=== PATIENT | male | born 1960 | race Caucasian/White ===

== ENCOUNTER 2020-09-07 21:10 | Emergency (ER) | payer SELFPAY ==
[~2020-09-07] VITALS: Ht 170.2 cm; Wt 99.2 kg
[2020-09-07] MEDS ORDERED: LABETALOL 5MG/ML, 20ML ONE (21:34)
--- NOTE | 2020-09-07 21:40 | NUR ---
Patient presents to ER c/o HTN, slurred speech, SOB, and swelling to bilat lower legs since today aroun 1900. Patient has no hx of TIA or stroke. Per daughter, patient is also generally weak. Patient self admin HTN meds at home. Patient is in NAD. Respirations even and unlabored. Patient speaks Arm[place]; this RN unable to evaluate for slurred speech. No weakness noted.
[2020-09-07] MEDS ORDERED: LABETALOL 5MG/ML, 20ML IVPush ONE (22:00)
[2020-09-07 22:43] LABS: BASOPHILS % (AUTO) 1 % (0-1); EOSINOPHILS % (AUTO) 2 % (1-7); LYMPHOCYTES % (AUTO) 26 % (22-44); MEAN CORPUSCULAR HEMOGLOBIN 28.9 pg (27.5-34.5); MEAN CORPUSCULAR HGB CONC 32.3 g/dL (33.2-36.2); MEAN PLATELET VOLUME 9.4 fL (7.4-10.4); MONOCYTES % (AUTO) 9 % (2-9); NEUTROPHILS % (AUTO) 63 % (42-75); PLATELET COUNT 327 x10^3/uL (130-400); RED BLOOD COUNT 5.05 x10^6/uL (4.38-5.82); RED CELL DISTRIBUTION WIDTH 15.1 % (9.4-14.8)
[2020-09-07 22:45] LABS: MD NO
[2020-09-07 22:51] LABS: ANION GAP 2 mmol/L (5-15); CALCIUM 9.2 mg/dL (8.5-10.1); CHLORIDE 110 mmol/L (98-107)
[2020-09-07 22:52] LABS: ALANINE AMINOTRANSFERASE 24 U/L (12-78); ALBUMIN 3.9 g/dL (3.4-5.0)
[2020-09-07 22:56] LABS: ALKALINE PHOSPHATASE 74 U/L (45-117); BILIRUBIN,TOTAL 0.2 mg/dL (0.2-1.0); TOTAL PROTEIN 7.9 g/dL (6.4-8.2); TROPONIN I < 0.015 ng/mL (0.000-0.045)
[2020-09-07] MEDS ORDERED: OMNIPAQUE 350 MG/ML, 100ML BOTTLE ONE (23:25)
[2020-09-07 23:56] VITALS: BP 152/93
--- NOTE | 2020-09-08 00:45 | NUR ---
Patient/Caregiver given discharge instructions and they have confirmed that they understand the instructions. Patient ambulatory with steady gait. PIV DC PRIOR TO DC
== END 2020-09-08 00:47 | disposition home or self-care (01) ==
LOC: ED 23:06
DX: G45.9 Transient cerebral ischemic attack, unspecified (principal); J44.1 Chronic obstructive pulmonary disease with (acute) exacerbation; I10 Essential (primary) hypertension; F41.9 Anxiety disorder, unspecified; R53.1 Weakness
CPT/HCPCS: 36415; 70450; 70496; 70498; 71045; 80053; 83880; 84484; 85025; 93005; 96374; 99285; Q9967